=== PATIENT | female | born 1995 | race Caucasian/White ===

== ENCOUNTER 2017-06-06 12:57 | Emergency (ER) | payer OTHER ==
[~2017-06-06] VITALS: Ht 165.1 cm; Wt 60.0 kg
[~2017-06-06 12:57] MED LIST: BUTA1CAP39 PO; LEVO75TA59; ONDA4TAB35 PO; PT MOTHER DENIES
[2017-06-06 12:59] VITALS: Ht 165.1 cm; Wt 60.0 kg
[2017-06-06] MEDS ORDERED: morphine 4 MG/ML VIAL IV STA (15:06)
[2017-06-06] MEDS ORDERED: ACETAMINOPHEN 325 MG TAB PO STA (15:06)
[2017-06-06] MEDS ORDERED: SODIUM CHLORIDE 0.9% 1L BAG IV* STA (15:06)
[2017-06-06] MEDS ORDERED: CEFTRIAXONE 2 GM/50 ML (PMX) 50 ML IVPB STA (15:06)
--- NOTE | 2017-06-06 15:12 | ERD ---
ER Documentation Chief Complaint Chief Complaint AGUAYO WITH PHOTOPHOBIA & THROBBING PAIN X 10 DAYS HPI Patient is a 21-year-old female who presents with gradual onset, constant, moderate to severe diffuse headache for 10 days. She states that it has been progressive. Since last night it has been more severe and she has had 2 episodes of vomiting. She also reports new photophobia and neck stiffness. The patient has history of meningitis 6 years ago, and states that the pain is similar to when she had meningitis. She denies dysuria or abdominal pain. She reports having mild sore throat, mild cough, mild shortness of breath. ROS All systems reviewed and are negative except as per history of present illness. Medications Home Meds Active Scripts Ibuprofen* (Motrin*) 600 Mg Tab, 600 MG PO Q8, #30 TAB Prov:ELISSA RODRIGUEZ MD 06/06/17 Discontinued Reported Medications Levothyroxine Sodium (Levothroid) 75 Mcg Tablet, DAILY 09/04/12 [Pt Mother Denies] No Conflict Check 02/02/11 Discontinued Scripts Ondansetron Hcl* (Zofran* ODT) 4 mg -ODT Tab.disper, 4 MG PO Q8 Y for NAUSEA AND /OR VOMITING, #30 TAB Prov:NADIAY PIZANO [employer] 10/23/15 Jhgresldwppzq-Jpbxpyhqko-Mgrewqon-Codeine* (Fioricet w/ Codeine*) [id number]- 30MG Capsule, 1 CAP PO Q6H Y for PAIN LEVEL 1-5, #30 CAP Prov:NADIYA PIZANO [employer] 10/23/15 Allergies Allergies: Coded Allergies: No Known Drug Allergies (Verified Allergy, Mild, 06/06/17) PMhx/Soc Past medical history: Migraine headaches, meningitis Past surgical history: None Social history: Denies tobacco or alcohol Last menstrual: Ended yesterday History of Surgery: No Anesthesia Reaction: No Hx Neurological Disorder: Yes (MIGRAINE) Hx Respiratory Disorders: No Hx Cardiac Disorders: No Hx Psychiatric Problems: No Hx Miscellaneous Medical Probl: Yes (hypothyroidism) Hx Alcohol Use: No Hx Substance Use: No Hx Tobacco Use: No FmHx Noncontributory Physical Exam Vitals Vital Signs Date Time Temp Pulse Resp B/P Pulse Ox O2 Delivery O2 Flow Rate FiO2 06/06/17 19:00 98.3 88 18 116/83 100 Room Air 06/06/17 16:36 85 20 100/59 100 06/06/17 15:12 Nasal Cannula 06/06/17 12:59 100.1 128 20 135/78 98 Physical Exam Const: Alert, in mild distress Head: Atraumatic Eyes: Normal Conjunctiva, No pallor, no icterus ENT: Normal External Ears, Nose and Mouth. Mucous membranes moist, No tonsillar erythema or exudate Neck: Full range of motion. Positive meningismus. Negative Kernig and Brudzinski sign Resp: Clear to auscultation bilaterally, No wheezes, no rales Cardio: Regular rate and rhythm, no murmurs Abd: Soft, non tender, non distended. Normal bowel sounds Skin: No petechiae or rashes Back: No midline or flank tenderness Ext: No cyanosis, or edema Neur: Awake and alert, Strength and sensation full in 4 extremities, cranial nerves II through XII intact bilaterally Psych: Normal Mood and Affect Result Diagram: 06/06/17 1507 06/06/17 1507 Results 24 hrs Laboratory Tests Test 06/06/17 15:00 06/06/17 15:07 06/06/17 15:10 06/06/17 16:15 Urine Color YELLOW Urine Clarity CLEAR Urine pH 6.0 Urine Specific [place] 1.014 Urine Ketones NEGATIVEmg/dL Urine Nitrite NEGATIVEmg/dL Urine Bilirubin NEGATIVEmg/dL Urine Urobilinogen NEGATIVEmg/dL Urine Leukocyte Esterase TRACELeu/ul Urine Microscopic RBC 18/HPF Urine Microscopic WBC 4/HPF Urine Squamous Epithelial Cells FEW/HPF Urine Bacteria FEW/HPF Urine Mucus FEW/HPF Urine Hemoglobin 2+mg/dL Urine Glucose NEGATIVEmg/dL Urine Total Protein NEGATIVEmg/dl White Blood Count 12.810^3/ul Red Blood Count 5.0610^6/ul Hemoglobin 12.3g/dl Hematocrit 39.9% Mean Corpuscular Volume 78.9fl Mean Corpuscular Hemoglobin 24.3pg Mean Corpuscular Hemoglobin Concent 30.8g/dl Red Cell Distribution Width 15.8% Platelet Count 81209^3/UL Mean Platelet Volume 9.7fl Neutrophils % 87.0% Lymphocytes % 6.2% Monocytes % 5.6% Eosinophils % 0.0% Basophils % 0.3% Nucleated Red Blood Cells % 0.0/100WBC Neutrophils # 11.210^3/ul Lymphocytes # 0.810^3/ul Monocytes # 0.710^3/ul Eosinophils # 0.010^3/ul Basophils # 0.010^3/ul Nucleated Red Blood Cells # 0.010^3/ul Prothrombin Time 14.6Sec Prothrombin Time Ratio 1.1 INR International Normalized Ratio 1.14 Activated Partial Thromboplast Time 28.8Sec Sodium Level 140mmol/L Potassium Level 3.6mmol/L Chloride Level 101mmol/L Carbon Dioxide Level 26mmol/L Anion Gap 17 Blood Urea Nitrogen 7mg/dl Creatinine 0.82mg/dl Glucose Level 101mg/dl Calcium Level 9.3mg/dl Total Bilirubin 0.7mg/dl Direct Bilirubin 0.00mg/dl Indirect Bilirubin 0.7mg/dl Aspartate Amino Transf (AST/SGOT) 23IU/L Alanine Aminotransferase (ALT/SGPT) 28IU/L Alkaline Phosphatase 63IU/L Total Protein 8.5g/dl Albumin 4.8g/dl Globulin 3.70g/dl Albumin/Globulin Ratio 1.29 Lactic Acid Level 1.6mmol/L CSF Tubes Submitted 4 CSF Volume 4.8ml CSF Appearance CLEAR CSF Color COLORLESS CSF WBC 0/cmm CSF RBC 0/uL CSF Cell Count Tube # TUBE#4 CSF Mononuclear Cells % (Auto) % CSF Polynuclear WBCs (%) % CSF Glucose 58mg/dl CSF Total Protein 16mg/dl Current Medications Medications (Trade) Dose Ordered Sig/Crispin Route PRN Reason Start Time Stop Time Status Last Admin Dose Admin Sodium Chloride (NS) 1,860 ml BOLUS OVER 2 HOURS STAT IV* 06/06/17 15:06 06/06/17 15:10 DC 06/06/17 15:49 Acetaminophen 650 mg 650 mg ONCE STAT PO 06/06/17 15:06 06/06/17 15:10 DC 06/06/17 16:05 Ceftriaxone Sodium (Rocephin) 50 ml @ 100 mls/hr ONCE STAT IVPB 06/06/17 15:06 06/06/17 15:35 DC 06/06/17 16:05 Metoclopramide HCl (Reglan) 10 mg ONCE ONCE IV 06/06/17 15:30 06/06/17 15:31 DC 06/06/17 15:48 Morphine Sulfate (morphine) 3 mg ONCE STAT IV 06/06/17 15:06 06/06/17 15:10 DC 06/06/17 15:47 Magnesium Sulfate (Magnesium Sulfate) 2 gm ONCE ONCE IVPB 06/06/17 17:00 06/06/17 17:01 UNV Ketorolac Tromethamine 15 mg 15 mg ONCE STAT IV 06/06/17 16:56 06/06/17 16:59 DC 06/06/17 17:11 Magnesium Sulfate (Magnesium Sulfate 2 Gm/50 ml) 50 ml @ 25 mls/hr ONCE ONCE IVPB 06/06/17 17:00 06/06/17 18:59 DC 06/06/17 17:08 Procedures/MDM EKG read by me: Time 1521, rate 109 Rhythm: Sinus tachycardia [place]: Right axis deviation Intervals: Normal ST-T waves: Incomplete right bundle branch block with shallow T-wave inversion in anterior leads Ectopy: No Q-waves: No Impression: Sinus tachycardia with incomplete right bundle branch block and nonischemic appearing nonspecific T-wave changes Lumbar Puncture by me: Patient consented, time out performed, sterilely prepped/draped, anesthetized locally. Anesthesia: 1% lidocaine locally Location: One interspace below the iliac crest Technique: 20 gauge needle with stylet for entry and removal of needle Results: 6 cc Clear CSF fluid No post procedure complications, bleeding, numbness or weakness. MDM: Patient is a 21-year-old female who presents to the ER with migraine headache associated with photophobia and neck stiffness as well as low-grade fever. She does have symptoms that are suggestive of URI. She has no findings suggestive of pneumonia or other bacterial infection. Lumbar puncture is negative for meningitis. Patient has normal neurologic exam. Her migraine headache improved significantly after receiving Reglan and Toradol. The patient will be discharged home and advised to take Motrin and return to the ER for worsening symptoms or other concerns. Departure Diagnosis: Primary Impression: Migraine Migraine type: unspecified Status migrainosus presence: without status migrainosus Intractability: not intractable Qualified Code: G43.909 - Migraine without status migrainosus, not intractable, unspecified migraine type Additional Impression: URI (upper respiratory infection) URI type: unspecified viral URI Qualified Code: J06.9 - Viral upper respiratory tract infection Condition: ELISSA Ashraf MD Jun 06, 2017 15:12
[2017-06-06 15:20] LABS: BASOPHILS % 0.3 % (0.0-2.0); HEMATOCRIT 39.9 % (37.0-47.0); HEMOGLOBIN 12.3 g/dl (12.0-16.0); LYMPHOCYTES # 0.8 10^3/ul (0.8-2.9); LYMPHOCYTES % 6.2 % (18.0-55.0); MEAN CORPUSCULAR HEMOGLOBIN 24.3 pg (29.0-33.0); MEAN CORPUSCULAR HGB CONC 30.8 g/dl (32.0-37.0); MEAN CORPUSCULAR VOLUME 78.9 fl (72.0-104.0); MEAN PLATELET VOLUME 9.7 fl (7.4-10.4); MONOCYTE # 0.7 10^3/ul (0.3-0.9); MONOCYTES % 5.6 % (0.0-13.0); NEUTROPHIL # 11.2 10^3/ul (1.6-7.5); PLATELET COUNT 234 10^3/UL (140-415); RED BLOOD COUNT 5.06 10^6/ul (4.20-5.40); RED CELL DISTRIBUTION WIDTH 15.8 % (11.5-14.5); WHITE BLOOD COUNT 12.8 10^3/ul (4.8-10.8)
[2017-06-06] MEDS ORDERED: METOCLOPRAMIDE 10 MG INJ IV ONE (15:30)
--- NOTE | 2017-06-06 15:30 | RADRPT ---
PROCEDURE: XR Chest. CLINICAL INDICATION: Possible Sepsis TECHNIQUE: PA and Lateral views of the chest were obtained. COMPARISON: None. FINDINGS: The cardiomediastinal silhouette is within normal limits. The lungs are clear. No signs of pleural f luid or pneumothorax are seen. The osseous structures and soft tissues are unremarkable. IMPRESSION: 1. No acute cardiopulmonary disease. RPTAT:AAJJ Theodore Lemus Physician Date Time Electronically viewed and signed by Theodore Lemus Physician on 06/06/2017 15:30 QL/
[2017-06-06 15:36] LABS: ADD UMIC YES; UR ASCORBIC ACID NEGATIVE (NEGATIVE); UR BACTERIA FEW /HPF (NONE SEEN); UR BILIRUBIN (Dip) NEGATIVE (NEGATIVE); UR BLOOD (Dip) 2+ mg/dL (NEGATIVE); UR CLARITY CLEAR (CLEAR); UR COLOR YELLOW (YELLOW); UR GLUCOSE (Dip) NEGATIVE (NEGATIVE); UR KETONES (Dip) NEGATIVE (NEGATIVE); UR LEUKOCYTE ESTERASE (Dip) TRACE Leu/ul (NEGATIVE); UR MUCUS FEW /HPF (NONE SEEN); UR NITRITE (Dip) NEGATIVE (NEGATIVE); UR RBC 18 /HPF (0-5); UR SPECIFIC GRAVITY (Dip) 1.014 (1.003-1.030); UR SQUAMOUS EPITHELIAL CELL FEW /HPF (FEW); UR TOTAL PROTEIN (Dip) NEGATIVE (NEGATIVE); UR UROBILINOGEN (Dip) NEGATIVE (NEGATIVE)
[2017-06-06 15:46] LABS: INR 1.14; PROTIME 14.6 Sec (12.2-14.2); PT RATIO 1.1
[2017-06-06 15:47] LABS: PARTIAL THROMBOPLASTIN TIME 28.8 Sec (25.0-35.0)
[2017-06-06 15:52] LABS: ALBUMIN 4.8 g/dl (3.3-4.9); ALBUMIN/GLOBULIN RATIO 1.29; BILIRUBIN,INDIRECT 0.7 mg/dl (0-1.1); BILIRUBIN,TOTAL 0.7 mg/dl (0.2-1.3); CALCIUM 9.3 mg/dl (8.4-10.2); CREATININE 0.82 mg/dl (0.44-1.00); POTASSIUM 3.6 mmol/L (3.5-5.1); TOTAL PROTEIN 8.5 g/dl (6.1-8.1)
--- NOTE | 2017-06-06 15:52 | RADRPT ---
PROCEDURE: CT Brain without contrast. CLINICAL INDICATION: Headache, possible sepsis. TECHNIQUE: A CT of the brain was performed on multidetector high-resolution CT scanner utilizing a xial sections from the skull base through the vertex without contrast. The scan was reviewed in sof t tissue brain and high frequency resolution bone algorithm windows. Images were reviewed on a high -resolution PACS workstation. One or more the following does reduction techniques were utilized: Aut omated exposure control, adjustment of the mA/ or kV according to patient's size, or use of iterativ e reconstruction technique. The exam CTDI = 44.26 mGy and the DLP = 720.23 mGy-cm. DICOM images are available. COMPARISON: None available. FINDINGS: The ventricles and sulci are age-appropriate. There is no intracranial hemorrhage, mass effect or mi dline shift. No abnormal intra-axial or extra-axial fluid collections are seen. The yousif/white brent er differentiation is preserved. No acute skull abnormality is noted. The visualized paranasal sinus es are essentially clear. IMPRESSION: 1. No acute intracranial hemorrhage, transcortical infarction or mass effect. RPTAT: QQ .Lisa Pyle MD, MD Date Time Electronically viewed and signed by .Lisa Pyle MD, MD on 06/06/2017 15:52 .N/
[2017-06-06 16:48] LABS: CSF COLOR COLORLESS
[2017-06-06 16:49] LABS: CSF VOLUME 4.8 ml; CSF#TUBE COUNT TUBE#4; CSF#TUBES REC'D 4
[2017-06-06] MEDS ORDERED: KETOROLAC 15 MG INJ IV STA (16:56)
[2017-06-06] MEDS ORDERED: MAGNESIUM SULFATE (GM) 50% 2 ML INJ IVPB ONE (17:00)
[2017-06-06] MEDS ORDERED: MAG SULFATE 2GM IN 50 ML IVPB ONE (17:00)
[2017-06-06 17:35] LABS: GLUCOSE,CSF 58 mg/dl (50-80)
[2017-06-06] MEDS ORDERED: IBUP-1542 PO (18:58)
[2017-06-06 19:00] VITALS: BP 116/83; PULSE 88; RESP 18; TEMP 98.3
== END 2017-06-06 19:10 | disposition home or self-care (01) ==
LOC: FTE 12:57 → E/R 19:10
DX: G43.909 Migraine, unspecified, not intractable, without status migrainosus (principal); J06.9 Acute upper respiratory infection, unspecified; E03.9 Hypothyroidism, unspecified; R06.02 Shortness of breath; R40.2142 Coma scale, eyes open, spontaneous, at arrival to emergency department; R40.2252 Coma scale, best verbal response, oriented, at arrival to emergency department; R40.2362 Coma scale, best motor response, obeys commands, at arrival to emergency department
CPT/HCPCS: 36415; 70450; 71010; 80053; 81001; 82945; 83605; 84157; 85025; 85610; 85730; 87040; 87070; 87086; 87400; 89051; 93005; 96374; 96375; J0696; J1885; J2270; J2765; J3475; J7030; Z7502; Z7610